=== PATIENT | female | born 2000 | race Caucasian/White ===

== ENCOUNTER → 2022-06-14 | Outpatient (REF) | LOC: M PLAIMG 14:47 | PROVIDERS: ATTEND Internal Medicine | DX: M25.521 Pain in right elbow (principal); M25.522 Pain in left elbow; M25.561 Pain in right knee; M25.562 Pain in left knee; R06.02 Shortness of breath; M54.50 Low back pain, unspecified ==

== ENCOUNTER → 2023-04-08 | Outpatient (CLI) | payer OTHER ==
[2023-04-08 13:38] LABS: GC DNA AMPLIFICATION NEGATIVE (NEGATIVE)
== END ==
LOC: M PLALAB 08:43
PROVIDERS: ATTEND Advanced Practice Midwife
DX: Z34.82 Encounter for supervision of other normal pregnancy, second trimester (principal)

== ENCOUNTER → 2023-04-29 | Outpatient (CLI) | payer OTHER | LOC: M WHC 09:56 | PROVIDERS: ATTEND Advanced Practice Midwife | DX: O44.42 Low lying placenta NOS or without hemorrhage, second trimester (principal); Z3A.19 19 weeks gestation of pregnancy ==

== ENCOUNTER → 2023-05-16 | Outpatient (CLI) | payer OTHER | LOC: M RAD 13:01 | PROVIDERS: ATTEND Obstetrics & Gynecology | DX: Z36.2 Encounter for other antenatal screening follow-up (principal); Z3A.21 21 weeks gestation of pregnancy ==

== ENCOUNTER → 2023-06-13 | Outpatient (CLI) | payer OTHER ==
[2023-06-13 13:07] LABS: HEMATOCRIT 32.6 % (36.0-47.0); HEMOGLOBIN 11.1 g/dl (12.0-15.5); MEAN CORPUSCULAR HEMOGLOBIN 30.8 pg (27.0-33.0); MEAN CORPUSCULAR VOLUME 90.6 fl (80.0-96.0); PLATELET COUNT, AUTOMATED 283 10^3/uL (150-450); WHITE BLOOD COUNT 10.4 10^3/uL (4.0-10.0)
[2023-06-13 14:37] LABS: CHLAMYDIA DNA AMPLIFICATION NEGATIVE (NEGATIVE); GC DNA AMPLIFICATION NEGATIVE (NEGATIVE)
== END ==
LOC: M PLALAB 09:57
PROVIDERS: ATTEND Advanced Practice Midwife
DX: Z34.82 Encounter for supervision of other normal pregnancy, second trimester (principal)

== ENCOUNTER → 2023-08-24 | Outpatient (REF) | payer OTHER | LOC: M SFHCWAGY 12:55 | PROVIDERS: ATTEND Obstetrics & Gynecology | DX: Z34.93 Encounter for supervision of normal pregnancy, unspecified, third trimester (principal) ==

== ENCOUNTER → 2023-09-06 | Outpatient (CLI) | payer OTHER ==
[2023-09-06 17:49] LABS: HEMATOCRIT 34.1 % (36.0-47.0); HEMOGLOBIN 11.7 g/dl (12.0-15.5); MEAN CORPUSCULAR HEMOGLOBIN 30.3 pg (27.0-33.0); MEAN CORPUSCULAR HGB CONC 34.3 g/dl (32.0-36.5); MEAN CORPUSCULAR VOLUME 88.3 fl (80.0-96.0); PLATELET COUNT, AUTOMATED 248 10^3/uL (150-450); RED BLOOD COUNT 3.86 10^6/uL (4.00-5.40); WHITE BLOOD COUNT 10.4 10^3/uL (4.0-10.0)
[2023-09-06 17:58] LABS: URIC ACID 5.4 MG/DL (3.1-7.8)
[2023-09-06 17:59] LABS: LDH LACTATE DEHYDROGENASE 156 U/L (120-246)
[2023-09-06 18:00] LABS: ALT/SGPT 9 U/L (7.0-40); AST/SGOT 10 U/L (<34); BILIRUBIN,TOTAL 0.4 MG/DL (0.3-1.2); GLOMERULAR FILTRATION RATE > 60.0 (>60)
[2023-09-06 18:03] LABS: CREATININE,RANDOM URINE 13.7 MG/DL
[2023-09-06 18:04] LABS: TOTAL PROTEIN,RANDOM URINE < 6.0 MG/DL (0.0-14.0)
== END ==
LOC: M PLALAB 15:25
PROVIDERS: ATTEND Advanced Practice Midwife
DX: Z34.83 Encounter for supervision of other normal pregnancy, third trimester (principal); Z3A.00 Weeks of gestation of pregnancy not specified

== ENCOUNTER 2023-09-10 18:00 | Outpatient (CLI) | payer OTHER ==
[~2023-09-10] VITALS: Ht 167.6 cm; Wt 99.9 kg
[2023-09-10 18:19] VITALS: BP 145/89
[2023-09-10] MEDS ORDERED: PRENTAB9 PO (18:20)
== END 2023-09-10 18:50 | disposition home or self-care (01) ==
LOC: M LDO 18:00
PROVIDERS: ATTEND Obstetrics & Gynecology
DX: O47.1 False labor at or after 37 completed weeks of gestation (principal); O13.3 Gestational [pregnancy-induced] hypertension without significant proteinuria, third trimester; Z3A.38 38 weeks gestation of pregnancy; E03.9 Hypothyroidism, unspecified; O99.283 Endocrine, nutritional and metabolic diseases complicating pregnancy, third trimester
CPT/HCPCS: 59025; G0463

== ENCOUNTER → 2024-05-16 | Outpatient (REF) ==
[~2024-05-16] MED LIST: ACET-683 PO; COLA100C5 PO; IBUP-1022 PO; PRENTAB9 PO
== END ==
LOC: M PLAIMG 09:33
PROVIDERS: ATTEND Internal Medicine
DX: E52 Niacin deficiency [pellagra] (principal)